=== PATIENT | male | born 1960 | race African-American/Black ===

== ENCOUNTER 2019-04-14 17:53 | Emergency (ER) | payer MEDICAID, OTHER ==
[~2019-04-14] VITALS: Ht 170.2 cm; Wt 61.0 kg
[2019-04-14 20:04] VITALS: BP 120/90
== END 2019-04-14 21:37 | disposition left against medical advice (07) ==
LOC: ER 17:53
DX: Z53.21 Procedure and treatment not carried out due to patient leaving prior to being seen by health care provider (principal)

== ENCOUNTER 2019-07-08 08:23 | Emergency (ER) | payer OTHER ==
[~2019-07-08] VITALS: Ht 170.2 cm; Wt 63.0 kg
[2019-07-08] MEDS ORDERED: ALBUTEROL (0.083%) 2.5MG/3ML NEB HHN STA (11:46)
[2019-07-08 12:11] LABS: BASOPHILS % 0.5 % (0.0-2.0); EOSINOPHILS % 7.3 % (0.0-5.0); HEMATOCRIT. 38.7 % (42.0-52.0); HEMOGLOBIN. 12.9 g/dL (14.0-18.0); LYMPHOCYTES % 42.9 % (20.0-50.0); MEAN CORPUSCULAR HEMOGLOBIN 30.8 pg (28.0-32.0); MEAN CORPUSCULAR VOLUME 92.4 fL (80.0-94.0); MEAN PLATELET VOLUME 9.3 fl (7.4-10.4); MONOCYTES % 12.8 % (2.0-8.0); NEUTROPHILS % 36.5 % (40.0-76.0); PLATELET 202 x1000/uL (130-400); RED BLOOD CELL COUNT 4.19 mill/uL (4.7-6.1); RED CELL DISTRIBUTION WIDTH 14.3 % (11.6-14.6)
[2019-07-08 13:07] VITALS: BP 98/70
[2019-07-08 13:10] LABS: CHLORIDE 99 mEq/L (98-107)
[2019-07-10] MEDS ORDERED: BENA40TA9 PO (22:02)
[2019-07-10] MEDS ORDERED: TRIA1TAB94 PO (22:02)
[2019-07-10] MEDS ORDERED: PROM5SYR PO (22:02)
[2019-07-10] MEDS ORDERED: PANT40TA4 PO (22:02)
[2019-07-11] MEDS ORDERED: AZIT250T12 PO (17:24)
[2019-07-11] MEDS ORDERED: ALBU05 NEB (17:24)
[2019-07-11] MEDS ORDERED: P20 PO (17:24)
== END 2019-07-08 14:16 | disposition left against medical advice (07) ==
LOC: ER 08:23
DX: E87.1 Hypo-osmolality and hyponatremia (principal); J20.8 Acute bronchitis due to other specified organisms; R03.0 Elevated blood-pressure reading, without diagnosis of hypertension; Z72.0 Tobacco use
CPT/HCPCS: 36415; 71045; 80053; 83880; 84484; 85025; 93005; 94640; 99284; J7611; Z7610

== ENCOUNTER 2019-07-31 04:36 | Emergency (ER) | payer OTHER ==
[~2019-07-31] VITALS: Ht 167.6 cm; Wt 64.0 kg
[~2019-07-31 04:36] MED LIST: ALBU05 NEB; AZIT250T12 PO; BENA40TA9 PO; P20 PO; PANT40TA4 PO; PROM5SYR PO; TRIA1TAB94 PO
[2019-07-31 07:15] LABS: BASOPHILS % 0.4 % (0.0-2.0); EOSINOPHILS % 9.1 % (0.0-5.0); HEMATOCRIT. 36.8 % (42.0-52.0); HEMOGLOBIN. 11.9 g/dL (14.0-18.0); LYMPHOCYTES % 33.3 % (20.0-50.0); MEAN CORPUSCULAR HEMOGLOBIN 30.4 pg (28.0-32.0); MEAN PLATELET VOLUME 8.8 fl (7.4-10.4); MONOCYTES % 9.7 % (2.0-8.0); NEUTROPHILS % 47.5 % (40.0-76.0); PLATELET 143 x1000/uL (130-400); RED BLOOD CELL COUNT 3.91 mill/uL (4.7-6.1); RED CELL DISTRIBUTION WIDTH 14.3 % (11.6-14.6)
[2019-07-31 07:24] LABS: CHLORIDE 102 mEq/L (98-107)
[2019-07-31] MEDS ORDERED: PREDNISONE 20MG TABLET PO STA (08:23)
[2019-07-31] MEDS ORDERED: IPRATROPIUM BROMIDE (0.02%) 0.5MG/2.5ML NEB HHN STA (08:23)
[2019-07-31] MEDS ORDERED: ALBUTEROL (0.083%) 2.5MG/3ML NEB HHN STA (08:23)
[2019-07-31] MEDS ORDERED: HYDROCODONE/ACETAMINOPHEN 5/325MG TABLET PO ONE (09:45)
[2019-07-31 11:00] VITALS: BP 128/85
== END 2019-07-31 11:00 | disposition home or self-care (01) ==
LOC: ER 05:14
DX: J44.0 Chronic obstructive pulmonary disease with (acute) lower respiratory infection (principal); I10 Essential (primary) hypertension
CPT/HCPCS: 36415; 71045; 80053; 83880; 84484; 85025; 93005; 99284; J7512

== ENCOUNTER 2019-10-12 18:11 | Emergency (ER) | payer OTHER ==
[~2019-10-12] VITALS: Ht 167.6 cm; Wt 62.0 kg
[~2019-10-12 18:11] MED LIST changes: -BENA40TA9 PO; -TRIA1TAB94 PO
[2019-10-12] MEDS ORDERED: ASPIRIN 81MG TABLET PO ONE (19:30)
[2019-10-12] MEDS ORDERED: ACETAMINOPHEN 325MG TABLET PO ONE (19:45)
[2019-10-12 20:01] LABS: CHLORIDE 105 mEq/L (98-107)
[2019-10-12 20:07] LABS: BASOPHILS % 0.9 % (0.0-2.0); EOSINOPHILS % 6.9 % (0.0-5.0); HEMATOCRIT. 41.7 % (42.0-52.0); HEMOGLOBIN. 14.2 g/dL (14.0-18.0); LYMPHOCYTES % 30.1 % (20.0-50.0); MEAN CORPUSCULAR HEMOGLOBIN 32.2 pg (28.0-32.0); MEAN CORPUSCULAR VOLUME 94.1 fL (80.0-94.0); MEAN PLATELET VOLUME 7.9 fl (7.4-10.4); MONOCYTES % 9.2 % (2.0-8.0); NEUTROPHILS % 52.9 % (40.0-76.0); PLATELET 233 x1000/uL (130-400); RED BLOOD CELL COUNT 4.43 mill/uL (4.7-6.1); RED CELL DISTRIBUTION WIDTH 14.6 % (11.6-14.6)
[2019-10-12] MEDS ORDERED: IOHEXOL-350 100 ML BOTTLE ONE (23:02)
[2019-10-13] MEDS ORDERED: ACETAMINOPHEN WITH CODEINE 300/30MG TABLET PO SCH (00:30)
[2019-10-13] MEDS ORDERED: HYDRALAZINE HCL 25MG TABLET PO SCH (00:30)
[2019-10-13] MEDS ORDERED: SODIUM CHLORIDE 0.9% 500 ML IV ONE (01:00)
[2019-10-13] MEDS ORDERED: AZITHROMYCIN 500 MG in DEXT 5% WATER 250 ML IV SCH (02:30)
[2019-10-13] MEDS ORDERED: CEFTRIAXONE 1 G PREMIX 50 ML IV ONE (02:30)
[2019-10-13] MEDS ORDERED: CLONIDINE 0.1MG TABLET PO ONE (03:30)
[2019-10-13] MEDS ORDERED: ACETAMINOPHEN 325MG TABLET PO ONE (05:30)
[2019-10-13 07:57] VITALS: BP 110/76
== END 2019-10-13 08:35 | disposition short-term general hospital (02) ==
LOC: ER 18:11
DX: R91.8 Other nonspecific abnormal finding of lung field (principal); I71.2 Thoracic aortic aneurysm, without rupture; M25.572 Pain in left ankle and joints of left foot; R00.0 Tachycardia, unspecified; M79.89 Other specified soft tissue disorders; R03.0 Elevated blood-pressure reading, without diagnosis of hypertension
CPT/HCPCS: 36415; 71045; 71275; 73610; 80053; 83880; 84484; 85025; 85379; 93005; 93971; 99285; J0456; J0696; J7060; Q9967; Z7610

== ENCOUNTER 2019-11-30 16:16 | Emergency (ER) | payer OTHER ==
[~2019-11-30] VITALS: Ht 160 cm; Wt 60.0 kg
[2019-11-30 16:27] VITALS: BP 137/99
== END 2019-11-30 17:05 | disposition home or self-care (01) ==
LOC: ER 16:16
DX: R06.02 Shortness of breath (principal); I10 Essential (primary) hypertension; Z76.0 Encounter for issue of repeat prescription; Z79.899 Other long term (current) drug therapy
CPT/HCPCS: 99283

== ENCOUNTER 2020-02-18 10:04 | Emergency (ER) | payer OTHER ==
[~2020-02-18] VITALS: Ht 167.6 cm; Wt 58.0 kg
[2020-02-18] MEDS ORDERED: CLONIDINE 0.1MG TABLET PO ONE ×2 (10:30→11:15)
[2020-02-18 12:16] VITALS: BP 162/123
== END 2020-02-18 12:00 | disposition home or self-care (01) ==
LOC: ER 10:04
DX: I10 Essential (primary) hypertension (principal); Z76.0 Encounter for issue of repeat prescription; Z79.899 Other long term (current) drug therapy
CPT/HCPCS: 99283

== ENCOUNTER 2020-03-05 09:12 | Emergency (ER) | payer OTHER ==
[~2020-03-05] VITALS: Ht 167.6 cm; Wt 61.0 kg
[2020-03-05] MEDS ORDERED: IPRATROPIUM BROMIDE (0.02%) 0.5MG/2.5ML NEB HHN STA (10:45)
[2020-03-05] MEDS ORDERED: ALBUTEROL (0.083%) 2.5MG/3ML NEB HHN STA (10:45)
[2020-03-05] MEDS ORDERED: PREDNISONE 20MG TABLET PO STA (10:45)
[2020-03-05 11:25] VITALS: BP 170/110
== END 2020-03-05 11:49 | disposition home or self-care (01) ==
LOC: ER 09:12
DX: J45.901 Unspecified asthma with (acute) exacerbation (principal); I10 Essential (primary) hypertension; Z79.899 Other long term (current) drug therapy
CPT/HCPCS: 71045; 93005; 94640; 99283; J7512; Z7610

== ENCOUNTER 2020-09-18 12:37 | Emergency (ER) | payer OTHER ==
[~2020-09-18] VITALS: Ht 172.7 cm; Wt 70.0 kg
[~2020-09-18 12:37] MED LIST changes: -PANT40TA4 PO; +PANT40TA51 PO
[2020-09-18] MEDS ORDERED: AMLO10TA80 MT (13:07)
[2020-09-18] MEDS ORDERED: AMLODIPINE 10MG TABLET PO ONE (13:15)
[2020-09-18 14:27] LABS: BASOPHILS % 0.7 % (0.0-2.0); HEMATOCRIT. 33.4 % (42.0-52.0); MEAN CORPUSCULAR HEMOGLOBIN 30.9 pg (28.0-32.0); MEAN PLATELET VOLUME 8.5 fl (7.4-10.4); MONOCYTES % 8.4 % (2.0-8.0); NEUTROPHILS % 47.9 % (40.0-76.0); PLATELET 171 x1000/uL (130-400); RED BLOOD CELL COUNT 3.55 mill/uL (4.7-6.1); RED CELL DISTRIBUTION WIDTH 14.2 % (11.6-14.6)
[2020-09-18 14:46] LABS: CHLORIDE 108 mEq/L (98-107)
[2020-09-18 15:30] VITALS: BP 169/113
== END 2020-09-18 15:15 | disposition home or self-care (01) ==
LOC: ER 12:37
DX: I10 Essential (primary) hypertension (principal); R94.31 Abnormal electrocardiogram [ECG] [EKG]; D64.9 Anemia, unspecified
CPT/HCPCS: 36415; 71045; 80053; 84484; 85025; 93005; 99285

== ENCOUNTER 2020-12-16 10:05 | Emergency (ER) | payer OTHER ==
[~2020-12-16] VITALS: Ht 170.2 cm; Wt 63.1 kg
[~2020-12-16 10:05] MED LIST changes: +AMLO10TA80 MT
[2020-12-16 10:21] VITALS: BP 127/89
[2020-12-16] MEDS ORDERED: LIDOCAINE HCL/EPINEPHRINE 1%-EPI 1:100,000 10 ML VIAL IJ ONE (10:45)
[2020-12-16] MEDS ORDERED: BACITRACIN ZINC OINT UDPKT TOP ONE (10:45)
[2020-12-16] MEDS ORDERED: LIDOCAINE HCL/EPINEPHRINE 1%-EPI 1:100,000 20 ML VIAL INFIL SCH (16:58)
== END 2020-12-16 12:22 | disposition home or self-care (01) ==
LOC: ER 10:05
DX: M71.38 Other bursal cyst, other site (principal); I10 Essential (primary) hypertension; F17.210 Nicotine dependence, cigarettes, uncomplicated; Z86.59 Personal history of other mental and behavioral disorders; Z79.899 Other long term (current) drug therapy
CPT/HCPCS: 99282; J3490

== ENCOUNTER 2021-01-08 10:47 | Emergency (ER) | payer OTHER ==
[~2021-01-08] VITALS: Ht 170.2 cm; Wt 62.0 kg
[2021-01-08] MEDS ORDERED: IBUPROFEN 400MG TABLET PO ONE (11:15)
[2021-01-08] MEDS ORDERED: IBUP-2028 MT (11:17)
[2021-01-08 11:26] VITALS: BP 113/88
== END 2021-01-08 11:39 | disposition home or self-care (01) ==
LOC: ER 10:47
DX: M70.22 Olecranon bursitis, left elbow (principal); I10 Essential (primary) hypertension
CPT/HCPCS: 99282

== ENCOUNTER 2021-07-04 15:44 | Emergency (ER) | payer OTHER ==
[~2021-07-04] VITALS: Ht 170.2 cm; Wt 70.0 kg
[~2021-07-04 15:44] MED LIST changes: +IBUP-2028 MT
[2021-07-04 15:49] VITALS: BP 126/94
== END 2021-07-04 18:43 | disposition left against medical advice (07) ==
LOC: ER 15:44
DX: Z53.21 Procedure and treatment not carried out due to patient leaving prior to being seen by health care provider (principal); M54.89 Other dorsalgia; R05.9 Cough, unspecified; Z87.01 Personal history of pneumonia (recurrent)

== ENCOUNTER 2021-07-05 09:54 | Emergency (ER) | payer OTHER ==
[~2021-07-05] VITALS: Ht 170.2 cm; Wt 65.0 kg
[2021-07-05 10:21] VITALS: BP 123/84
== END 2021-07-05 11:06 | disposition home or self-care (01) ==
LOC: ER 09:54
DX: M54.50 Low back pain, unspecified (principal); I10 Essential (primary) hypertension
CPT/HCPCS: 99281

== ENCOUNTER 2021-08-17 10:11 | Emergency (ER) | payer OTHER ==
[~2021-08-17] VITALS: Ht 172.7 cm; Wt 77.0 kg
[2021-08-17] MEDS ORDERED: ACETAMINOPHEN WITH CODEINE 300/30MG TABLET PO ONE (10:45)
[2021-08-17 12:00] VITALS: BP 117/76
== END 2021-08-17 12:05 | disposition home or self-care (01) ==
LOC: ER 10:11
DX: M25.561 Pain in right knee (principal); I10 Essential (primary) hypertension
CPT/HCPCS: 73564; 99283

== ENCOUNTER 2022-02-15 16:33 | Emergency (ER) | payer OTHER ==
[~2022-02-15] VITALS: Ht 170.2 cm; Wt 66.0 kg
[2022-02-15 16:39] VITALS: BP 152/104
[2022-02-15] MEDS ORDERED: LOSA50TA41 PO (16:43)
[2022-02-15] MEDS ORDERED: MELO-105 PO (16:43)
[2022-02-15] MEDS ORDERED: LOPHC2 GT (16:43)
[2022-02-15] MEDS ORDERED: HYDR-4135 PO (16:43)
[2022-02-15] MEDS ORDERED: NITROGLYCERIN 0.4MG TABLET SL SL PRN (23:15)
[2022-02-15] MEDS ORDERED: ASPIRIN 81MG TABLET PO ONE (23:15)
== END 2022-02-16 07:14 | disposition left against medical advice (07) ==
LOC: ER 16:33
DX: Z53.21 Procedure and treatment not carried out due to patient leaving prior to being seen by health care provider (principal); R07.89 Other chest pain
CPT/HCPCS: 93005; 99283

== ENCOUNTER 2022-02-17 08:30 | Emergency (ER) | payer OTHER ==
[~2022-02-17] VITALS: Ht 170.2 cm; Wt 66.0 kg
[~2022-02-17 08:30] MED LIST changes: +HYDR-4135 PO; +LOPHC2 GT; +LOSA50TA41 PO; +MELO-105 PO
[2022-02-17] MEDS ORDERED: ASPIRIN 81MG TABLET PO ONE (10:45)
[2022-02-17 12:12] LABS: BASOPHILS % 0.6 % (0.0-2.0); HEMATOCRIT. 37.8 % (42.0-52.0); HEMOGLOBIN. 11.9 g/dL (14.0-18.0); LYMPHOCYTES % 30.3 % (20.0-50.0); MEAN CORPUSCULAR HEMOGLOBIN 29.7 pg (28.0-32.0); MEAN CORPUSCULAR VOLUME 94.2 fL (80.0-94.0); MONOCYTES % 9.8 % (2.0-8.0); NEUTROPHILS % 52.3 % (40.0-76.0); PLATELET 205 x1000/uL (130-400); RED BLOOD CELL COUNT 4.02 mill/uL (4.7-6.1); RED CELL DISTRIBUTION WIDTH 15.9 % (11.6-14.6)
[2022-02-17 12:21] LABS: CHLORIDE 106 mEq/L (98-107)
[2022-02-17] MEDS ORDERED: ASPIRIN 81MG TABLET PO SCH (12:30)
[2022-02-17 22:59] VITALS: BP 173/107
== END 2022-02-17 23:12 | disposition short-term general hospital (02) ==
LOC: ER 08:30 → CANBEDREQ 21:35 → ER 23:12 → CANBEDREQ 02-18 00:05
DX: R07.89 Other chest pain (principal); F17.200 Nicotine dependence, unspecified, uncomplicated; I10 Essential (primary) hypertension; Z79.899 Other long term (current) drug therapy; Z20.822 Contact with and (suspected) exposure to COVID-19
CPT/HCPCS: 36415; 71045; 80053; 83690; 83880; 84484; 85025; 87426; 93005; 99285; C9803; Z7610

== ENCOUNTER 2023-04-04 14:22 | Emergency (ER) | payer MEDICAID ==
[~2023-04-04] VITALS: Ht 172.7 cm; Wt 73.0 kg
[~2023-04-04 14:22] MED LIST changes: -HYDR-4135 PO; -LOPHC2 GT; -PROM5SYR PO
[2023-04-04 14:25] VITALS: O2SAT 100
[2023-04-04 15:15] LABS: BASOPHILS % 0.9 % (0.0-2.0); EOSINOPHILS % 1.8 % (0.0-5.0); HEMATOCRIT. 36.5 % (42.0-52.0); LYMPHOCYTES % 51.4 % (20.0-50.0); MEAN CORPUSCULAR HEMOGLOBIN 29.7 pg (28.0-32.0); MEAN CORPUSCULAR HGB CONC 32.8 g/dL (31.0-37.0); MEAN CORPUSCULAR VOLUME 90.5 fL (80.0-94.0); MEAN PLATELET VOLUME 8.8 fl (7.4-10.4); MONOCYTES % 10.4 % (2.0-8.0); NEUTROPHILS % 35.5 % (40.0-76.0); PLATELET 156 x1000/uL (130-400); RED BLOOD CELL COUNT 4.04 mill/uL (4.7-6.1); RED CELL DISTRIBUTION WIDTH 15.1 % (11.6-14.6); WHITE BLOOD COUNT 5.1 x1000/uL (4.5-11.0)
[2023-04-04 15:20] LABS: CHLORIDE 110 mEq/L (98-107); INDEX HEMOLYSI 1 (1-3); INDEX ICTERIC 1 (1-4); INDEX LIPEMIC 1 (1-3); POTASSIUM 3.5 mEq/L (3.5-5.1); SODIUM 138 mEq/L (136-145)
[2023-04-04 15:30] LABS: ALANINE AMINOTRANSFERASE 24 IU/L (13-61); ALBUMIN 3.5 g/dL (3.4-5.0); ASPARTATE AMINOTRANSFERASE 21 IU/L (15-37); BILIRUBIN TOTAL 0.2 mg/dL (0.1-1.0); CALCIUM 8.7 mg/dL (8.5-10.1); CARBON DIOXIDE 21 mEq/L (21-32); GLUCOSE 69 mg/dL (70-105); NT PRO B-TYPE NATRIURETIC PEP 239 pg/mL (5-125); TROPONIN I HIGH SENSITIVITY 12 ng/L (<78); UREA NITROGEN BLOOD 5 mg/dL (7-21)
[2023-04-04 17:08] LABS: TROPONIN I HIGH SENSITIVITY 13 ng/L (<78)
[2023-04-04] MEDS ORDERED: KETOROLAC 30MG/ML VIAL IV ONE (18:00)
[2023-04-04 19:30] VITALS: BP 131/93; PULSE 79; RESP 16; TEMP 98.6
== END 2023-04-04 19:54 | disposition home or self-care (01) ==
LOC: ER 14:31
DX: R07.89 Other chest pain (principal); I10 Essential (primary) hypertension
CPT/HCPCS: 99285; 96374; 71275; 71045; 80053; 83880; 85025; 85379; 84484; 36415; 93005; J1885

== ENCOUNTER 2023-09-11 08:26 | Emergency (ER) | payer MEDICARE, MEDICAID ==
[~2023-09-11] VITALS: Ht 167.6 cm; Wt 59.0 kg
[2023-09-11 08:33] VITALS: TEMP 98.6; O2SAT 100
[2023-09-11] MEDS: MORPHINE SULFATE 4 MG/ML CPJ (NOT FOR IM USE) IV STA (09:45)
[2023-09-11] MEDS: ONDANSETRON HCL 4MG/2ML INJ IV STA (09:45)
[2023-09-11] MEDS: SODIUM CHLORIDE 0.9% 1,000 ML IV ONE (09:46)
[2023-09-11 09:56] LABS: BASOPHILS % 0.6 % (0.0-2.0); EOSINOPHILS % 1.2 % (0.0-5.0); HEMATOCRIT. 38.4 % (42.0-52.0); HEMOGLOBIN. 12.7 g/dL (14.0-18.0); LYMPHOCYTES % 25.5 % (20.0-50.0); MEAN CORPUSCULAR HEMOGLOBIN 29.3 pg (28.0-32.0); MEAN CORPUSCULAR HGB CONC 33.1 g/dL (31.0-37.0); MEAN CORPUSCULAR VOLUME 88.5 fL (80.0-94.0); MEAN PLATELET VOLUME 8.1 fl (7.4-10.4); MONOCYTES % 7.8 % (2.0-8.0); NEUTROPHILS % 64.9 % (40.0-76.0); PLATELET 183 x1000/uL (130-400); RED BLOOD CELL COUNT 4.34 mill/uL (4.7-6.1); RED CELL DISTRIBUTION WIDTH 13.9 % (11.6-14.6); WHITE BLOOD COUNT 5.6 x1000/uL (4.5-11.0)
[2023-09-11 10:07] LABS: PROTHROMBIN TIME 11.6 sec (9.6-11.0)
[2023-09-11 10:17] LABS: ALANINE AMINOTRANSFERASE 27 IU/L (10-49); ALBUMIN 4.4 g/dL (3.2-4.8); ASPARTATE AMINOTRANSFERASE 26 IU/L (<34); BILIRUBIN TOTAL 0.3 mg/dL (0.1-1.0); CALCIUM 9.4 mg/dL (8.7-10.4); CARBON DIOXIDE 23 mEq/L (21-32); CHLORIDE 106 mEq/L (98-107); GLUCOSE 116 mg/dL (70-105); POTASSIUM 3.7 mEq/L (3.5-5.1); PROTEIN TOTAL 7.6 g/dL (6.0-8.3); SODIUM 137 mEq/L (136-145); UREA NITROGEN BLOOD 8 mg/dL (9-23)
[2023-09-11 10:37] LABS: ETHANOL BLOOD < 10 mg/dL (<10)
[2023-09-11] MEDS ORDERED: ESOM40CA PO (13:45)
[2023-09-11] MEDS: MORPHINE SULFATE 4 MG/ML CPJ (NOT FOR IM USE) IV ONE (14:41)
[2023-09-11 15:43] VITALS: BP 127/88; PULSE 87; RESP 19
[2023-09-12] MEDS ORDERED: IOHEXOL-300 100 ML BOTTLE ONE (09:25)
== END 2023-09-11 15:51 | disposition home or self-care (01) ==
LOC: ER 08:26
DX: R10.84 Generalized abdominal pain (principal); I10 Essential (primary) hypertension; Z79.899 Other long term (current) drug therapy
CPT/HCPCS: 80053; 80320; 83690; 85025; 85610; 36415; 74177; 96361; 96374; 96375; 96376; 99285; Q9967; J2405; J2270; J7030; Z7610; G0480